=== PATIENT | male | born 1980 | race Caucasian/White ===

== ENCOUNTER 2021-03-08 08:08 | Emergency (ER) | payer OTHER ==
[2021-03-08 08:31] VITALS: BP 149/85; PULSE 97; BMI 25.2
[2021-03-08 08:32] VITALS: TEMP 98.7
[2021-03-08 10:46] LABS: BASO % 0.5 % (0-2.0); EOS % 3.5 % (0-4.5); HEMATOCRIT 46.6 % (35.4-49); HEMOGLOBIN 16.2 GM/dL (11.7-16.9); LYMPH % 22.7 % (8-40); MCH 32.3 pg (25.7-33.7); MCHC 34.6 g/dl (32.0-35.9); MEAN CELL VOLUME 93.3 fl (80-96); MEAN PLT VOLUME 7.1 fl (7.5-11.1); MONO % 9.5 % (3.8-10.2); NEUT % 63.8 % (42.8-82.8); PLATELET COUNT 240 10^3/uL (134-434); RDW 12.6 % (11.9-15.9); WHITE BLOOD COUNT 7.4 K/mm3 (4.0-10.0)
[2021-03-08 11:06] LABS: ALBUMIN 4.3 g/dl (3.4-5.0); BLOOD UREA NITROGEN 8.6 mg/dL (7-18); CALCIUM 9.5 mg/dL (8.5-10.1)
[2021-03-08 11:09] LABS: CREATININE 0.9 mg/dL (0.55-1.3)
[2021-03-08 11:11] LABS: TOT PROT 8.1 g/dl (6.4-8.2)
[2021-03-08] MEDS ORDERED: FAMOTIDINE 10 MG TABLET PO ONE (12:01)
[2021-03-08] MEDS ORDERED: IBUPROFEN 600 MG TABLET (FP) PO ONE (12:01)
[2021-03-08] MEDS ORDERED: MAG HYDROX/AL HYDROX/SIMETH 30 ML UNIT-DOSE CUP PO ONE (12:01)
[2021-03-08] MEDS ORDERED: ACETAMINOPHEN 325 MG TABLET (FP) PO ONE (12:01)
[2021-03-08] MEDS ORDERED: ACETAMINOPHEN 325 MG TABLET (FP) ONE (12:15)
== END 2021-03-08 13:25 | disposition home or self-care (01) ==
LOC: JER 08:08
DX: R07.9 Chest pain, unspecified (principal)
CPT/HCPCS: 36415; 71046-TC-FY; 71275-TC; 80053; 82550; 82553; 84484; 85025; 85379; 93005; 93010; 99285-25; C9803; Q9967; U0003; U0005